=== PATIENT | female | born 1990 | race Caucasian/White ===

== ENCOUNTER 2019-12-17 15:14 | Inpatient (IN) ==
[~2019-12-17 15:14] MED LIST: Famotidine 20 MG/2 ML VIAL IVP PRN; Metoclopramide 10 MG/2 ML VIAL IVP PRN; Naloxone 0.4 MG/ML INJ IVP PRN
[2019-12-17] MEDS ORDERED: Betamethasone Acet/SodPhos 30 MG/5 ML VIAL IM SCH (15:15)
[2019-12-17] MEDS ORDERED: Ringers Solution, Lactated 1,000 ML IVC SCH (15:15)
[2019-12-17] MEDS ORDERED: Magnesium Sulf 20 gm/SW 500mL 20 GM/500 ML IV.SOLN IVC SCH (15:15)
[2019-12-17] MEDS ORDERED: Erythromycin Lactobionate 250 MG in 0.9 % Sodium Chloride 100 ML IVPB ONE (15:17)
[2019-12-17] MEDS ORDERED: Ampicillin 2 GM in 0.9 % Sodium Chloride Mini Bag 100 ML IVPB ONE (15:18)
[2019-12-17 15:52] LABS: Amphetamine Screen,Urine Negative ng/mL (Cutoff=1000); Barbiturate Screen,Urine Negative ng/mL (Cutoff=200); Benzodiazepines Screen,Urine Negative ng/mL (Cutoff=200); Cannabinoid Screen,Urine Negative ng/mL (Cutoff = 50); Cocaine Screen,Urine Negative ng/mL (Cutoff= 300); Opiate Screen,Urine Negative ng/mL (Cutoff=300); Phencyclidine Screen,Urine Negative ng/mL (Cutoff=25)
[2019-12-17] MEDS ORDERED: Calcium Gluconate 1,000 MG/10 ML VIAL ONE (16:04)
== END 2019-12-17 16:15 | disposition short-term general hospital (02) | DRG 833 ==
LOC: 1NENULAB
PROVIDERS: ADMIT Student in an Organized Health Care Education/Training Program; ATTEND Student in an Organized Health Care Education/Training Program